=== PATIENT | male | born 1965 | race Caucasian/White ===

== ENCOUNTER → 2019-02-20 | Day surgery (SDC) | payer OTHER ==
--- NOTE | 2019-02-09 08:00 | HP ---
CC: Dr. Montes; Dr. Milton Mckay * PREOPERATIVE HISTORY AND PHYSICAL: DATE OF ADMISSION: 02/20/19 This patient is scheduled for same-day surgery admission by Dr. Montes on Wednesday , 02/20/19. DATE OF OFFICE VISIT: 02/08/19. ATTENDING SURGEON: Dr. Tay Montes * (dictated by Nanci Ramirez NP). CHIEF COMPLAINT: Ventral hernia. HISTORY OF PRESENT ILLNESS: The patient is a 53-year-old male referred to Dr. Montes by Dr. Mckay for evaluation of a ventral hernia. The patient is not sure how long this has been present, but he has had some discomfort associated with it, sharp at times, 2/10 in severity, and worse with certain activities and better with rest. He denies any change in bowel habits or any symptoms to suggest incarceration or strangulation. Dr. Montes examined the patient and noted a ventral hernia that is reducible approximately 4 cm above the umbilicus. Dr. Montes has recommended robotic ventral hernia repair with mesh under general anesthesia as a same-day surgery procedure. He described the nature of the surgical procedure, the rationale for the procedure, the relevant risks and benefits, and today I reviewed the expected postoperative care and recovery. The patient has had a chance to ask questions and stated that he understands the information and is satisfied with the answers given to his questions. He will sign surgical consent on the day of surgery. PAST MEDICAL HISTORY: 1. GERD. 2. Hyperlipidemia. 3. Anxiety. PAST SURGICAL HISTORY: Some type of hernia repair, unspecified. MEDICATIONS: 1. Omeprazole 20 mg p.o. daily in the morning. 2. Sertraline 25 mg p.o. daily in the morning. ALLERGIES: No known drug allergies. FAMILY HISTORY: No known anesthesia complications, bleeding tendencies, or clotting disorders. His brother has insulin-dependent diabetes mellitus. SOCIAL HISTORY: He is and is employed in IT at [employer]. He smokes 1 pack of cigarettes per day since age 15 and has no plan at this time to quit. He drinks alcohol occasionally and denies use of other substances. REVIEW OF SYSTEMS: Constitutional: No fevers, chills, excessive fatigue, or weight loss. General: No history of deep vein thrombosis or pulmonary embolism ; he states with general anesthesia many years ago that he had a very raw and sore throat postoperatively; he denies any bleeding tendencies and has never received a blood transfusion. Eyes: No visual difficulty. ENMT: No problems with hearing. No current sore throat or sinus drainage. Endocrine: No diabetes or thyroid disease. Respiratory: No dyspnea on exertion or chronic cough. Cardiovascular: No anginal chest pain or palpitations. Gastrointestinal: As described in history of present illness. Genitourinary: No dysuria. Musculoskeletal: Normal strength and tone. Integumentary: No skin changes or chronic rashes. Neurologic: No headache, blurred vision, or areas of focal weakness or numbness. Psychiatric: No reported depression or insomnia, but he is currently on medication for anxiety and stress. PHYSICAL EXAMINATION GENERAL SURVEY: The patient is a 53-year-old male, well developed, well nourished, in no acute distress. VITAL SIGNS: Height 70 inches, weight 188 pounds, body mass index 27. Blood pressure 110/72, pulse 80 and regular, respiratory rate 14, temperature 96.3 tympanic. HEENT: Benign. NECK: Supple. No cervical lymphadenopathy. LUNGS: Breath sounds bilaterally clear and equal. HEART: Regular rate and rhythm. No murmurs or rubs appreciated. BACK: No CVA tenderness. ABDOMEN: Active bowel sounds. Obvious ventral hernia bulge 4 cm above the umbilicus, nontender, and reducible. Abdomen is nondistended. No other palpable masses or organomegaly. GENITALIA AND RECTAL: Deferred. EXTREMITIES: Warm, without edema or skin ulceration. NEUROLOGIC: Alert and oriented x3. Steady gait. PSYCHIATRIC: Attitude is pleasant and cooperative. SKIN: Warm, dry, intact. IMPRESSION: Ventral hernia without obstruction. PLAN: Same-day surgery admission to Dr. Montes's service on 02/20/19, for robotic ventral hernia repair with mesh. SUSHMA RAMIREZ NP [id number]/[facility] #: [id number] YOSEPH
[~2019-02-20] MED LIST: Acetaminophen IV 1GM/100ML * 100 ML ONE; Buffered Lidocaine 1% SYRIN* 1 ML/SYRINGE INTRADERM ONE; Bupivacaine 0.5%* 50 ML MDV VIAL ONE; Dexamethasone IV* 4 MG/ML 1 ML (4 MG) ONE; DiMENhydriNATE IV* 50 MG/ML VIAL IV PUSH PRN; HYDROmorphone INJ1* 1 MG/ML SYRINGE IV PRN; Ketorolac INJ* 30 MG/ML 1 ML VIAL ONE; Lactated Ringers 1000 ML Bag* 1,000 ML IV SCH; Lidocaine 2% PF * 5 ML VIAL ONE; Midazolam* 1 MG/ML 5 ML VIAL (5 MG) ONE; Naloxone* 0.4 MG/ML 1 ML VIAL IV PRN; Ondansetron INJ* 2 MG/ML VIAL IV PRN; Ondansetron INJ* 2 MG/ML VIAL ONE; Propofol* 10 MG/ML 20 ML BTL ONE; Rocuronium* 10 MG/ML VIAL ONE; Sugammadex * 500 MG/5 ML VIAL IV PUSH ONE; ceFAZolin 2 GM in NS PREMIX(*) 2 GM/100 ML BAG IVPB ONE; fentaNYL* 50 MCG/ML 2 ML VIAL (100 MCG VIAL) IV PRN; fentaNYL* 50 MCG/ML 2 ML VIAL (100 MCG VIAL) ONE
[2019-02-20 12:45] VITALS: BP 124/84
--- NOTE | 2019-02-20 20:38 | OP ---
DATE OF OPERATION: 02/20/19 - [facility] DATE OF : 63 SURGEON: Tay Montes MD RELAY TESTER HELPER: DAKSHA Sunshine PRE-OP DIAGNOSIS: Ventral hernia. POST-OP DIAGNOSES: 1. Ventral hernia. 2. Separate small umbilical hernia. 3. Spigelian region hernia. OPERATIVE PROCEDURE: Robotic repair of ventral hernia, umbilical hernia, Spigelian hernia. INDICATIONS: Ventral hernia. Risks of surgery included, but not limited to, bleeding, infection, injury to intraabdominal contents including the bowel, recurrence of the hernia were all explained to the patient, who seemed to understand and agreed to the procedure and all questions were answered. DESCRIPTION OF PROCEDURE: The patient was taken to the operating room, placed supine. Preoperative antibiotics were given. After the successful induction of general endotracheal anesthesia, the abdomen was prepped and draped in sterile fashion. A time-out was performed indicating correct patient and correct procedure. A 5-mm trocar was placed in the left upper quadrant under direct visualization of the camera using a bladeless Optiview trocar. Pneumoperitoneum was achieved to 12 mmHg. Camera was placed in the abdomen. The abdomen was scanned. There was no obvious injury from trocar placement. In a line down along the left side of the abdomen, two 8-mm trocars were then placed and the 5-mm trocar was replaced with an 8-mm trocar, all under direct visualization of the camera. The robot was brought in and docked. The peritoneum overlying the midline abdomen was taken down creating a pocket and large amount of adipose was removed from the ventral hernia. Some adipose was removed from the small umbilical hernia and a small Spigelian hernia lateral to this on the right was noted as well. Using a 0 PDS V-Loc suture, the umbilical hernia was closed and the sutures were around along the midline up towards the ventral hernia, which was also closed with a running stitch. The suture was then carried out laterally towards the small Spigelian hernia and which was also closed. A Ventralex mesh was brought into the abdomen, which covered the ventral hernia and the small Spigelian hernia and sutured to the anterior abdominal wall using the 0 PDS V-Loc suture tacking it initially in the middle and then sewing peripherally around it. The peritoneum was closed with a 3- 0 V -Loc suture. Both needles were removed from the abdomen. The abdomen was scanned. No obvious injuries were noted. EBL minimal. Hemostasis was intact. Pneumo-peritoneum was released from the abdomen. The trocars were removed. The skin was closed with 3-0 Monocryl at each site and glue was applied. He tolerated the procedure well. He was extubated and taken to Recovery in stable condition. [id number]/[facility] #: [id number] MTDD
== END | disposition home or self-care (01) ==
LOC: OR 06:45
PROVIDERS: ATTEND Surgery
DX: K43.9 Ventral hernia without obstruction or gangrene (principal); K42.9 Umbilical hernia without obstruction or gangrene; F17.210 Nicotine dependence, cigarettes, uncomplicated; K21.9 Gastro-esophageal reflux disease without esophagitis; E78.5 Hyperlipidemia, unspecified; F41.9 Anxiety disorder, unspecified
CPT/HCPCS: 49652; S2900; C1781; J0690; J1100; J1885; J2250; J2405; J2704; J3010; J3490